=== PATIENT | female | born 1965 | race Caucasian/White ===

== ENCOUNTER → 2017-04-24 | Outpatient (CLI) | payer BC ==
--- NOTE | 2017-04-24 14:31 | Diagnostic Imaging Report ---
EXAMINATION: Two views of the left hip. INDICATION: Chronic left hip pain. FINDINGS: There is moderate joint space narrowing seen in the lateral aspect of the left hip joint. Subchondral sclerosis is also seen. Joint marginal osteophytes are also present. No fracture or dislocation. The left SI joint appears unremarkable. IMPRESSION: Mild to moderate left hip osteoarthritis. Dictated by: Dictated on workstation # [id number]
== END ==
LOC: RAD 13:51
PROVIDERS: ATTEND Family Medicine
DX: M25.552 Pain in left hip (principal); M16.12 Unilateral primary osteoarthritis, left hip
CPT/HCPCS: 73502

== ENCOUNTER → 2019-07-16 | Outpatient (CLI) | payer BC ==
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
== END ==
LOC: RAD 15:03
PROVIDERS: ATTEND Family Medicine
DX: M54.2 Cervicalgia (principal); R51 Headache; V89.2XXA Person injured in unspecified motor-vehicle accident, traffic, initial encounter
CPT/HCPCS: 72040

== ENCOUNTER → 2022-03-20 | Outpatient (CLI) | payer BC ==
--- NOTE | 2022-03-20 10:25 | Diagnostic Imaging Report ---
PROCEDURE: US Gallbladder. TECHNIQUE: Multiple Real-time grayscale images were obtained over the right upper quadrant in various projections. INDICATION: Right upper quadrant pain COMPARISON: None available. FINDINGS: The liver is unremarkable without focal hepatic mass. Normal direction of flow within the main portal vein. Multiple echogenic foci with posterior acoustic shadowing are identified within the gallbladder. There is, however, no evidence of gallbladder wall thickening or pericholecystic fluid. The common bile duct is within normal limits measuring 0.3 cm. The pancreas is not well seen secondary to overlying bowel gas. The visualized portions of the abdominal aorta and inferior vena cava are unremarkable. The right kidney is within normal limits in size. A round thin-walled anechoic cyst measuring 2 cm with posterior acoustic enhancement is noted within the superior pole of the right kidney. The right kidney is otherwise unremarkable. No significant free fluid. Negative sonographic Terry sign. IMPRESSION: Cholelithiasis without sonographic evidence of acute cholecystitis. Benign-appearing right renal cyst. Dictated by: Dictated on workstation # [id number]
== END ==
LOC: RAD 08:30
PROVIDERS: ATTEND Family Medicine
DX: K80.20 Calculus of gallbladder without cholecystitis without obstruction (principal); N28.1 Cyst of kidney, acquired
CPT/HCPCS: 76705